=== PATIENT | male | born 1985 | race African-American/Black ===

== ENCOUNTER 2016-07-06 08:02 | Emergency (ER) | payer OTHER ==
--- NOTE | 2016-07-06 10:12 | REP ---
Chest x-ray: Two views. History: Right-sided chest pain. Pleuritic pain. . Comparison study: No comparison study . Findings: The lungs are well inflated and free of infiltrate. The pleural angles are sharp. The heart size is normal. Pulmonary vasculature is not increased. No significant bony abnormality is seen. A linear clothing artifact is seen projecting over the thoracic spine. Impression: Negative chest x-ray. Signed by Rubin Richard MD 07/06/2016 10:03 A
--- NOTE | 2016-07-06 10:37 | EDDOCDS ---
Physician Documentation [facility] Name: Garfield Storey Age: 31 yrs Sex: Male : 1985 Arrival Date: 07/06/2016 Time: 08:02 Bed PR Private MD: Disposition: 07/06/16 10:24 Discharged to Home/Self Care. Impression: Strain of muscle and tendon of back wall of thorax. - Condition is Stable. - Discharge Instructions: Thoracic Strain, [id number]. - Prescriptions for Diclofenac Sodium 75 mg Oral Tablet, Delayed Release (E.C.) - take 1 tablet by ORAL route 2 times per day; 30 tablet. - Medication Reconciliation, Local Pharmacy Hours form. - Follow up: Talha Mccartney [facility]; When: Call to arrange an appointment; Reason: Further diagnostic work-up, Recheck today's complaints, Continuance of care. - Problem is new. - Symptoms are unchanged. Historical: - Allergies: Aspirin; - Home Meds: 1. Tramadol Oral Unknown bid (Last dose: 07/05/2016 20:00) 2. Multivitamin Oral 1 tablet daily (Last dose: 07/05/2016 20:00) - PMHx: Back pain; - PSHx: Umbilical hernia repair; - Social history: Smoking status: Patient states was never smoker of tobacco. No barriers to communication noted, The patient speaks fluent Yemeni. - Family history: Not pertinent. - : The pt / caregiver states he / she is not on anticoagulants. Home medication list is obtained from the patient. - Exposure Risk Screening:: None identified. Vital Signs: 07/06 08:28 BP 150 / 74; Pulse 58; Resp 18; Temp 97.6(TE); Pulse Ox 100% on R/A; Weight 75.75 kg / nb2 167 lbs (R); Height 6 ft. 5 in. (195.58 cm) (R); Pain 7/10; 10:33 BP 125 / 75; Pulse 56; Resp 16; Temp 97.1(T); Pulse Ox 100% on R/A; dwg 08:28 Body Mass Index 19.80 (75.75 kg, 195.58 cm) nb2 MDM: 09:39 Financial registration complete. lg 09:42 Chest, 2 View (pa\E\lat) Ordered. EDMS 09:47 [facility] Payment Agreement was scanned into [employer] and attached to record. lg Signatures: Dispatcher [employer] EDAndres Sen, NEW RN Evi Meredith, Ezra Reg lg Vic Tom PA PA btw The chart was reviewed and I authenticate all verbal orders and agree with the evaluation and treatment provided.Attachments: 09:47 [facility] Payment Agreement lg MTDD
--- NOTE | 2016-07-06 10:37 | EDDOCDS ---
Nurse's Notes [facility] Name: Garfield Storey Age: 31 yrs Sex: Male : 1985 Arrival Date: 07/06/2016 Time: 08:02 Bed PR2 / Private MD: Diagnosis: Strain of muscle and tendon of back wall of thorax Presentation: 07/06 08:36 Presenting complaint: Patient states: Right sided rib area pain since 7am today, during dwg PT, pain increases with deep breath. Acute neurological deficits are not present. Mechanism of Injury: No Mechanism of Injury. Adult Sepsis Screening: The patient does not have new or worsening altered mentation. Patient's respiratory rate is less than 22. Systolic blood pressure is greater than 100. Patient has a qSOFA score of 0- Negative Sepsis Screen. Suicide/Homicide risk assessment- the patient denies having any suicidal and/or homicidal ideations and does not present with any other emotional, behavioral or mental health complaints. 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 Transition of care: patient was received from [facility] [place] 08:36 Acuity: SINDHU Level 4 dwg 08:36 Method Of Arrival: Walkin/Carried/Asstd dwg Triage Assessment: 08:40 General: Appears in no apparent distress. Pain: Pain currently is 7 out of 10 on a pain dwg scale. Pt Declines HIV testing. 10:36 Musculoskeletal:. dwg Historical: - Allergies: Aspirin; - Home Meds: 1. Tramadol Oral Unknown bid (Last dose: 07/05/2016 20:00) 2. Multivitamin Oral 1 tablet daily (Last dose: 07/05/2016 20:00) - PMHx: Back pain; - PSHx: Umbilical hernia repair; - Social history: Smoking status: Patient states was never smoker of tobacco. No barriers to communication noted, The patient speaks fluent Mongolian. - Family history: Not pertinent. - : The pt / caregiver states he / she is not on anticoagulants. Home medication list is obtained from the patient. - Exposure Risk Screening:: None identified. Screenin:34 Screening information is obtained from the patient. Fall risk: No risks identified. dwg Assistance ADL's: requires no assistance with activities of daily living. Abuse/DV Screen: The patient / caregiver reports he/she is: not in a situation that causes fear, pain or injury. Nutritional screening: No deficits noted. Advance Directives: Currently, there is no health care proxy. There is no active DNR order. There is no living will. There is no Power of Fish Net Maker. Advance directive information has not previously been placed in an [facility] medical record. Further advance directive information is declined. home support is adequate. Assessment: 10:33 General: Appears in no apparent distress, Behavior is cooperative. Pain: Pain currently [facility] is 5 out of 10 on a pain scale. Neurological: Level of Consciousness is awake, alert, Oriented to person, place, time. Respiratory: Airway is patent Respiratory effort is even, unlabored, Respiratory pattern is regular, symmetrical, Breath sounds are clear bilaterally. Vital Signs: 08:28 BP 150 / 74; Pulse 58; Resp 18; Temp 97.6(TE); Pulse Ox 100% on R/A; Weight 75.75 kg nb2 (R); Height 6 ft. 5 in. (195.58 cm) (R); Pain 7/10; 10:33 BP 125 / 75; Pulse 56; Resp 16; Temp 97.1(T); Pulse Ox 100% on R/A; dwg 08:28 Body Mass Index 19.80 (75.75 kg, 195.58 cm) nb2 Vitals: 08:40 Log In Time: July 06, 2016 at 08:04. [facility] ED Course: 08:05 Patient visited by Zeke Etienne. jp5 08:05 Patient moved to Waiting jp5 08:28 Patient moved to Triage 2 nb2 08:29 Patient visited by Erika Cardona. nb2 08:39 Triage Initiated dwg 08:42 Patient moved to Pre RCE dwg 09:27 Patient moved to Triage 2 dwg 09:33 Vic Tom PA is PHCP. btw 09:33 Tavia Del Cid MD is Attending Physician. btw 09:33 Patient visited by Vic Tom PA. btw 09:40 Patient moved to TR1 btw 09:46 Patient name changed from Garfield\S\\S\Dairo\S\ to Garfield\S\ \S\Dairo. EDMS 09:47 [facility] [place] Payment Agreement was scanned into [employer] and attached to record. lg 10:17 Chest, 2 View (pa\E\lat) Returned. EDMS 10:20 Patient moved to [facility] 10:23 Talha Mccartney [facility] is Referral Physician. btw 10:35 No IV's were initiated during this patient's visit. No procedures done that require dwg assistance. 10:36 The patient / caregiver is instructed regarding the plan of care and ED course. dwg Order Results: Radiology Order: Chest, 2 View (pa\E\lat) Test: Chest, 2 View (pa\E\lat) REASON FOR EXAMINATION: RIGHT sided chest pain/pleuritic pain; Chest x-ray: Two views.; ; History: Right-sided chest pain. Pleuritic pain. .; ; Comparison study: No comparison study .; ; Findings: The lungs are well inflated and free of infiltrate. The pleural; angles are sharp. The heart size is normal. Pulmonary vasculature is not; increased. No significant bony abnormality is seen. A linear clothing artifact; is seen projecting over the thoracic spine.; ; Impression:; ; Negative chest x-ray.; ; ; Signed by; Rubin Richard MD 07/06/2016 10:03 A; Outcome: 10:24 Discharge ordered by Provider. btw 10:35 Discharge Assessment: Patient awake, alert and oriented x 3. No cognitive and/or dwg functional deficits noted. Patient verbalized understanding of disposition instructions. patient administered narcotics - no. The following High Risk Discharge criteria are identified: None. Discharged to home ambulatory. Condition: good Condition: stable. No special radiology studies were completed. Property sent home with patient. 10:36 Patient left the ED. dwg Signatures: Dispatcher [employer] EDMS Yumiko Mann RN RN Andres Abreu RN RN dwg Evi Verma, Reg Reg lg Vic Tom PA PA btw Price, Jennalee jp5 Baart, Nicole nb2 [facility]
--- NOTE | 2016-07-08 11:38 | EDDOCDS ---
Nurse's Notes [facility] Name: Garfield Storey Age: 31 yrs Sex: Male : 1985 Arrival Date: 07/06/2016 Time: 08:02 Bed PR2 / Private MD: Diagnosis: Strain of muscle and tendon of back wall of thorax Presentation: 07/06 08:36 Presenting complaint: Patient states: Right sided rib area pain since 7am today, during dwg PT, pain increases with deep breath. Acute neurological deficits are not present. Mechanism of Injury: No Mechanism of Injury. Adult Sepsis Screening: The patient does not have new or worsening altered mentation. Patient's respiratory rate is less than 22. Systolic blood pressure is greater than 100. Patient has a qSOFA score of 0- Negative Sepsis Screen. Suicide/Homicide risk assessment- the patient denies having any suicidal and/or homicidal ideations and does not present with any other emotional, behavioral or mental health complaints. 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 Transition of care: patient was received from [facility] [place]. 08:36 Acuity: SINDHU Level 4 dwg 08:36 Method Of Arrival: Walkin/Carried/Asstd dwg Triage Assessment: 08:40 General: Appears in no apparent distress. Pain: Pain currently is 7 out of 10 on a pain dwg scale. Pt Declines HIV testing. 10:36 Musculoskeletal:. dwg Historical: - Allergies: Aspirin; - Home Meds: 1. Tramadol Oral Unknown bid (Last dose: 07/05/2016 20:00) 2. Multivitamin Oral 1 tablet daily (Last dose: 07/05/2016 20:00) - PMHx: Back pain; - PSHx: Umbilical hernia repair; - Social history: Smoking status: Patient states was never smoker of tobacco. No barriers to communication noted, The patient speaks fluent Mohawk. - Family history: Not pertinent. - : The pt / caregiver states he / she is not on anticoagulants. Home medication list is obtained from the patient. - Exposure Risk Screening:: None identified. Screenin:34 Screening information is obtained from the patient. Fall risk: No risks identified. dwg Assistance ADL's: requires no assistance with activities of daily living. Abuse/DV Screen: The patient / caregiver reports he/she is: not in a situation that causes fear, pain or injury. Nutritional screening: No deficits noted. Advance Directives: Currently, there is no health care proxy. There is no active DNR order. There is no living will. There is no Power of Paperboard Machine Operator. Advance directive information has not previously been placed in an [facility] medical record. Further advance directive information is declined. home support is adequate. Assessment: 10:33 General: Appears in no apparent distress, Behavior is cooperative. Pain: Pain currently [facility] is 5 out of 10 on a pain scale. Neurological: Level of Consciousness is awake, alert, Oriented to person, place, time. Respiratory: Airway is patent Respiratory effort is even, unlabored, Respiratory pattern is regular, symmetrical, Breath sounds are clear bilaterally. Vital Signs: 08:28 BP 150 / 74; Pulse 58; Resp 18; Temp 97.6(TE); Pulse Ox 100% on R/A; Weight 75.75 kg nb2 (R); Height 6 ft. 5 in. (195.58 cm) (R); Pain 7/10; 10:33 BP 125 / 75; Pulse 56; Resp 16; Temp 97.1(T); Pulse Ox 100% on R/A; dwg 08:28 Body Mass Index 19.80 (75.75 kg, 195.58 cm) nb2 Vitals: 08:40 Log In Time: July 06, 2016 at 08:04. [facility] ED Course: 08:05 Patient visited by Zeke Etienne. jp5 08:05 Patient moved to Waiting jp5 08:28 Patient moved to Triage 2 nb2 08:29 Patient visited by Erika Cardona. nb2 08:39 Triage Initiated dwg 08:42 Patient moved to Pre RCE dwg 09:27 Patient moved to Triage 2 dwg 09:33 Vic Tom PA is PHCP. btw 09:33 Tavia Del Cid MD is Attending Physician. btw 09:33 Patient visited by Vic Tom PA. btw 09:40 Patient moved to TR1 btw 09:46 Patient name changed from Garfield\S\\S\Dairo\S\ to Garfield\S\ \S\Dairo. EDMS 09:47 [facility] [place] Payment Agreement was scanned into [employer] and attached to record. lg 10:17 Chest, 2 View (pa\E\lat) Returned. EDMS 10:20 Patient moved to [facility] 10:23 Talha Mccartney [facility] is Referral Physician. btw 10:35 No IV's were initiated during this patient's visit. No procedures done that require dwg assistance. 10:36 The patient / caregiver is instructed regarding the plan of care and ED course. [facility] 14:51 T-Sheet-- Draft Copy was scanned into [employer] and attached to record. gb Order Results: Radiology Order: Chest, 2 View (pa\E\lat) Test: Chest, 2 View (pa\E\lat) REASON FOR EXAMINATION: RIGHT sided chest pain/pleuritic pain; Chest x-ray: Two views.; ; History: Right-sided chest pain. Pleuritic pain. .; ; Comparison study: No comparison study .; ; Findings: The lungs are well inflated and free of infiltrate. The pleural; angles are sharp. The heart size is normal. Pulmonary vasculature is not; increased. No significant bony abnormality is seen. A linear clothing artifact; is seen projecting over the thoracic spine.; ; Impression:; ; Negative chest x-ray.; ; ; Signed by; Rubin Richard MD 07/06/2016 10:03 A; Outcome: 10:24 Discharge ordered by Provider. btw 10:35 Discharge Assessment: Patient awake, alert and oriented x 3. No cognitive and/or dwg functional deficits noted. Patient verbalized understanding of disposition instructions. patient administered narcotics - no. The following High Risk Discharge criteria are identified: None. Discharged to home ambulatory. Condition: good Condition: stable. No special radiology studies were completed. Property sent home with patient. 10:36 Patient left the ED. dwg Signatures: [facility] Yumiko Mann RN RN Andres Abreu RN RN dwg Moon Stephens, Reg Reg gb Evi Verma, Reg Reg lg Vic Tom PA PA btw Zeke Etienne jp5 Erika Cardona2 Chart Complete MTDD
--- NOTE | 2016-07-08 11:38 | EDDOCDS ---
Physician Documentation [facility] Name: Garfield Storey Age: 31 yrs Sex: Male : 1985 Arrival Date: 07/06/2016 Time: 08:02 Bed PR Private MD: Disposition: 07/06/16 10:24 Discharged to Home/Self Care. Impression: Strain of muscle and tendon of back wall of thorax. - Condition is Stable. - Discharge Instructions: Thoracic Strain, [id number]. - Prescriptions for Diclofenac Sodium 75 mg Oral Tablet, Delayed Release (E.C.) - take 1 tablet by ORAL route 2 times per day; 30 tablet. - Medication Reconciliation, Local Pharmacy Hours form. - Follow up: Talha Mccartney [facility]; When: Call to arrange an appointment; Reason: Further diagnostic work-up, Recheck today's complaints, Continuance of care. - Problem is new. - Symptoms are unchanged. Historical: - Allergies: Aspirin; - Home Meds: 1. Tramadol Oral Unknown bid (Last dose: 07/05/2016 20:00) 2. Multivitamin Oral 1 tablet daily (Last dose: 07/05/2016 20:00) - PMHx: Back pain; - PSHx: Umbilical hernia repair; - Social history: Smoking status: Patient states was never smoker of tobacco. No barriers to communication noted, The patient speaks fluent Malian. - Family history: Not pertinent. - : The pt / caregiver states he / she is not on anticoagulants. Home medication list is obtained from the patient. - Exposure Risk Screening:: None identified. Vital Signs: 07/06 08:28 BP 150 / 74; Pulse 58; Resp 18; Temp 97.6(TE); Pulse Ox 100% on R/A; Weight 75.75 kg / nb2 167 lbs (R); Height 6 ft. 5 in. (195.58 cm) (R); Pain 7/10; 10:33 BP 125 / 75; Pulse 56; Resp 16; Temp 97.1(T); Pulse Ox 100% on R/A; dwg 08:28 Body Mass Index 19.80 (75.75 kg, 195.58 cm) nb2 MDM: 09:39 Financial registration complete. lg 09:42 Chest, 2 View (pa\E\lat) Ordered. EDMS 09:47 [facility] Payment Agreement was scanned into [employer] and attached to record. lg 14:51 T-Sheet-- Draft Copy was scanned into [employer] and attached to record. gb Signatures: Dispatcher [employer] Andres Nicole, RN RN dwg Moon Stephens, Reg Reg gb Evi Verma, Reg Reg lg Vic Tom PA PA btw The chart was reviewed and I authenticate all verbal orders and agree with the evaluation and treatment provided.Attachments: 09:47 [facility] Payment Agreement lg 14:51 T-Sheet-- Draft Copy gb Chart Complete MTDD
--- NOTE | 2016-07-08 11:38 | EDDOCDS ---
Physician Documentation [facility] Name: Garfield Storey Age: 31 yrs Sex: Male : 1985 Arrival Date: 07/06/2016 Time: 08:02 Bed PR Private MD: Disposition: 07/06/16 10:24 Discharged to Home/Self Care. Impression: Strain of muscle and tendon of back wall of thorax. - Condition is Stable. - Discharge Instructions: Thoracic Strain, [id number]. - Prescriptions for Diclofenac Sodium 75 mg Oral Tablet, Delayed Release (E.C.) - take 1 tablet by ORAL route 2 times per day; 30 tablet. - Medication Reconciliation, Local Pharmacy Hours form. - Follow up: Talha Mccartney [facility]; When: Call to arrange an appointment; Reason: Further diagnostic work-up, Recheck today's complaints, Continuance of care. - Problem is new. - Symptoms are unchanged. Historical: - Allergies: Aspirin; - Home Meds: 1. Tramadol Oral Unknown bid (Last dose: 07/05/2016 20:00) 2. Multivitamin Oral 1 tablet daily (Last dose: 07/05/2016 20:00) - PMHx: Back pain; - PSHx: Umbilical hernia repair; - Social history: Smoking status: Patient states was never smoker of tobacco. No barriers to communication noted, The patient speaks fluent Kuwaiti. - Family history: Not pertinent. - : The pt / caregiver states he / she is not on anticoagulants. Home medication list is obtained from the patient. - Exposure Risk Screening:: None identified. Vital Signs: 07/06 08:28 BP 150 / 74; Pulse 58; Resp 18; Temp 97.6(TE); Pulse Ox 100% on R/A; Weight 75.75 kg / nb2 167 lbs (R); Height 6 ft. 5 in. (195.58 cm) (R); Pain 7/10; 10:33 BP 125 / 75; Pulse 56; Resp 16; Temp 97.1(T); Pulse Ox 100% on R/A; dwg 08:28 Body Mass Index 19.80 (75.75 kg, 195.58 cm) nb2 MDM: 09:39 Financial registration complete. lg 09:42 Chest, 2 View (pa\E\lat) Ordered. EDMS 09:47 [facility] Payment Agreement was scanned into [employer] and attached to record. lg 14:51 T-Sheet-- Draft Copy was scanned into [employer] and attached to record. gb Signatures: Dispatcher [employer] Andres Nicole, RN RN dwg Moon Stephens, Reg Reg gb Evi Verma, Reg Reg lg Vic Tmo PA PA btw The chart was reviewed and I authenticate all verbal orders and agree with the evaluation and treatment provided.Attachments: 09:47 [facility] Payment Agreement lg 14:51 T-Sheet-- Draft Copy gb Chart Complete MTDD
== END 2016-07-06 10:36 | disposition home or self-care (01) ==
LOC: M ED 08:02
DX: S29.012A Strain of muscle and tendon of back wall of thorax, initial encounter (principal); X58.XXXA Exposure to other specified factors, initial encounter; Y92.139 Unspecified place military base as the place of occurrence of the external cause; Y93.89 Activity, other specified; Y99.1 Military activity; Z88.6 Allergy status to analgesic agent

== ENCOUNTER → 2016-08-31 | Outpatient (CLI) | payer OTHER ==
--- NOTE | 2016-09-12 00:18 | ECWPNPC ---
PATIENT NAME: CARMEN PORTILLO : 1985 GENDER: MALE VISIT DATE: 08/31/2016 DISCHARGE DATE: 08/31/16 1023 VISIT LOCKED DATE TIME: PHYSICIAN: ASIA COTTO RESOURCE: ASIA COTTO HISTORY OF PRESENT ILLNESS HISTORY OF PRESENT ILLNESS: HERE FOR F/U AFTER INITIAL EVALUATION IN APRIL.STATES HE HAD LEI AT ANOTHER FACILITY [place] HE HAD NOT RECIEVED A CALL FROM OUR OFFICE WITH AUTHORIZATION FOR PROCEDURE.CONTINUES WITH RIGHT SIDED LOW BACK AND RIGHT LEG PAIN.REPORTS THAT PAIN TRAVELS UP RIGHT BACK TO NECK.RATING PAIN VAS 5/10.DESCRIBES PAIN CONSTANT ACHING. PAIN THE PATIENT DESCRIBES THE PAIN... FALL RISK SCREENING: SCREENING :NO FALLS IN THE PAST YEAR NEW PATIENT CONSULT: 31 Y/O FT. [employer] WITH ONE YEAR HX RIGHT LBP.NOTICED AFTER LIFTING WEIGHTS.NOTICED PAIN DOWN POSTERIOR ASPECT OF RIGHT LEG 2 MOS AGO.THIS IS INTERMITTENT AND IS AGGREVATED BY PROLONGED SITTING OR STANDING.PAIN BEHIND RIGHT KNEE X 5 MOS . 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 [employer] PROVIDER. WHEN DID YOUR PAIN FIRST START? . BRIEFLY DESCRIBE HOW YOUR PAIN STARTED? . HOW DOES YOUR PAIN CHANGE WITH TIME? . DOES YOUR PAIN AWAKEN YOU FROM SLEEP? . HOW MANY HOURS OF SLEEP DO YOU NORMALLY GET? . ANY DIAGNOSTIC TESTING? . FACILITY WHERE TESTS WERE DONE? ____. PAIN TREATMENT TREATMENT YES CANCER HAVE YOU EVER HAD ANY TYPE OF CANCER?NO NO. CURRENT MEDICATIONS TAKING TYLENOL 325 MG TABLET 2 TABLETS NEEDED ORALLY EVERY 6 HRS TAKING TRAMADOL HCL 50 MG TABLET 1 TABLET NEEDED ORALLY EVERY 6 HRS TAKING HYDROXYZINE HCL 25 MG TABLET 1 TABLET ORALLY BEFORE BEDTIME PRN NOT-TAKING IBUPROFEN 200 MG TABLET 1 TABLET NEEDED ORALLY EVERY 6 HRS DISCONTINUED HYDRALAZINE HCL 25 MG TABLET 1 TABLET ORALLY TWICE A DAY MEDICATION LIST REVIEWED AND RECONCILED WITH THE PATIENT PAST MEDICAL HISTORY UMBILICAL HERNIA LOW BACK PAIN ALLERGIES ASPIRIN: ITCHY: ALLERGY SURGICAL HISTORY UMBILICAL HERNA 2015 SOCIAL HISTORY GENERAL: PAIN CLINIC PFS, CLERGY, PUBLIC HEALTH REFERRALS CLERGY REFERRAL NEEDED?NO WAS THE PROVIDER NOTIFIED OF ANY PERTINENT INFO?NO PFS REFERRAL NEEDED?NO PUBLIC HEALTH REFERRAL NEEDED?NO PATIENT: ____. REVIEW OF SYSTEMS CONSTITUTIONAL: ANY CHANGE IN YOUR MEDICAL CONDITION? NO . CHILLS NO . FEVER NO . INFECTION: DO YOU HAVE NEW INFECTIONS? NO . DO YOU HAVE HISTORY OF MRSA? NO . MUSCULOSKELETAL: ANY NEW PATTERNS OF PAIN OR NUMBNESS? YES, PAIN NOW GOES UP TO RIGHT SHOULDER DOWN TO RIGHT HEEL . GASTROENTEROLOGY: ANY NEW CHANGE IN BOWEL CONTROL? NO . GENITOURINARY: ANY NEW CHANGE IN BLADDER CONTROL? NO . IS THERE A CHANCE YOU COULD BE ? NO . HEMATOLOGY/LYMPH: DO YOU TAKE ANY BLOOD THINNERS? (FOR EXAMPLE- COUMADIN, PLAVIX, AGGRENOX, PLATEL, PRADAXA, OR XARELTO) NO . WHEN WAS YOUR LAST DOSE? DATE: TIME: . NEUROLOGY: HAVE YOU FALLEN IN THE PAST 6 MONTHS? NO . ANY NEW EXTREMITY NUMBNESS OR WEAKNESS? NO . CARDIOLOGY: DO YOU HAVE A PACEMAKER OR DEFIBRILLATOR? NO . RESPIRATORY: HAVE YOU BEEN SICK IN THE PAST WEEK? NO . FEVER NO . FLU LIKE SYMPTOMS? NO . COUGH NO . INTEGUMENTARY: DO YOU HAVE ANY RASHES OR OPEN SORES? NO . ALLERGIC/IMMUNO: ARE YOU ALLERGIC TO SHELLFISH OR IV DYE? NO . ANY NEW ALLERGIES? NO . PSYCHIATRIC: DO YOU HAVE THOUGHTS OF HURTING YOURSELF OR SOMEONE ELSE? NO . ARE YOU ABUSED, NEGLECTED, OR IN AN UNSAFE ENVIRONMENT? NO . ENDOCRINOLOGY: ARE YOU DIABETIC? NO . OTHER: DO YOU NEED ANY PRESCRIPTIONS? YES . IF YES, PLEASE LIST: ____TRAMADOL . ANY NEW PROBLEMS WITH YOUR MEDICATIONS? NO . WHEN DID YOU LAST EAT? ____ . WHEN DID YOU LAST DRINK? ____ . WHAT DID YOU LAST DRINK? ____ . NAME OF PERSON DRIVING YOU HOME? ____ . DO YOU HAVE ANY OTHER QUESTIONS OR CONCERNS NO . REVIEWED BY: PROVIDER: ASIA VINES . VITAL SIGNS WT 177 LBS, HT 77 IN, BMI 20.99 INDEX, BP 130/69 MM HG, HR 68 /MIN, RR 18 /MIN, TEMP 98.5 F, OXYGEN SAT % 99, NA INITIALS HS, REVIEWED BY: RICK. EXAMINATION LUMBAR SPINE/LOWER BACK: INSPECTION:NORMAL CURVATURE OF SPINE. PALPATION:NO VERTEBRAL SPINE TENDERNESS, NO PARASPINAL TENDERNESS. STRAIGHT LEG RAISING TEST:POSITIVE AT 30 DEGREES ON RIGHT,POSITIVE FOR RIGHT LBP W STRAIGHT LEG RAISE 30 DEGREES ON LEFT. MOTOR SYSTEM:5/5 BLE. SENSORY EXAM:NORMAL. REFLEXES:2/4 AND SYMMETRIC BLE. DIAGNOSTIC DATA:MRI L/S SPINE --L2-3-POSTERIOR ANNULAR FISSURE.RIGHT PARACENTRAL DISC PROTRUSION RESULTS IN MODERSTECANAL STENOSIS WITH EFFACEMENT OF RIGHT TERESSA-VENTRAL THECAL SAC AND IMPINGEMENT OF RIGHT L3 NERVE ROUTE. ASSESSMENTS DISC DISPLACEMENT, LUMBAR - M51.26 (PRIMARY) LUMBAR RADICULOPATHY, RIGHT - M54.16 TREATMENT DISC DISPLACEMENT, LUMBAR NOTES: REFER TO [facility]-SURGICAL EVAL. [facility]:LBP/RIGHT LEG RADICULOPATHY PROCEDURE CODES FA211 ESTABILISHED PATIENT [facility] CHARGE DISPOSITION & COMMUNICATION FOLLOW UP 6 WEEKS (REASON: REFER TO SOS SURGICAL EVAL-UNABLE TO ENTER ECW) ELECTRONICALLY SIGNED BY JASMYN GILBERT ON 09/11/2016 AT 04:44 PM EDT DISCLAIMER : THIS IS A VISIT SUMMARY EXTRACTED FROM THE [employer] CHART. IT IS NOT A COPY OF THE [employer] PROGRESS NOTE. BRANDYN
== END | disposition home or self-care (01) ==
LOC: M PAIN 09:20
PROVIDERS: ATTEND Nurse Practitioner Family
DX: G89.29 Other chronic pain (principal); M51.26 Other intervertebral disc displacement, lumbar region; M54.16 Radiculopathy, lumbar region; Z88.8 Allergy status to other drugs, medicaments and biological substances